=== PATIENT | male | born 1980 | race Caucasian/White ===

== ENCOUNTER 2017-04-15 21:13 | Emergency (ER) | payer MEDICAID ==
[2017-04-15] MEDS ORDERED: HYDROmorphone 1 MG/ML Syringe IM ONE (21:45)
--- NOTE | 2017-04-15 21:47 | EDM.PDOC ---
ED HPI GENERAL MEDICAL PROBLEM - General Chief Complaint: Back Pain or Injury Stated Complaint: BACK PAIN Time Seen by Provider: 04/15/17 21:40 Source of Information: Reports: Patient, Family, RN Notes Reviewed History Limitations: Reports: No Limitations - History of Present Illness INITIAL COMMENTS - FREE TEXT/NARRATIVE: 36-year-old gentleman presents emergency department day complaint of low back pain, he recently moved here from [place] he has been moving his lifting for the last 3 days pain is predominantly on the right side no loss of bowel or bladder no fever he has tried ibuprofen and Flexeril without much relief has used Toradol and Soma in the past without any relief Lower Back Pain Score (Numeric/FACES): 10 - Related Data Allergies Allergy/AdvReac Type Severity Reaction Status Date / Time Sulfa (Sulfonamide Allergy Hives Verified 04/15/17 21:29 Antibiotics) sulfamethoxazole Allergy Hives Verified 04/15/17 21:29 [From Bactrim] trimethoprim [From Bactrim] Allergy Hives Verified 04/15/17 21:29 Past Medical History - Past Health History Medical/Surgical History: Denies Medical/Surgical History Musculoskeletal History: Reports: Back Pain, Chronic - Infectious Disease History Infectious Disease History: Reports: Chicken Pox Social & Family History - Tobacco Use Smoking Status *Q: Current Every Day Smoker Years of Tobacco use: 20 Packs/Tins Daily: 1 - Caffeine Use Caffeine Use: Reports: Coffee, Soda, Tea - Recreational Drug Use Recreational Drug Use: No ED ROS GENERAL - Review of Systems Review Of Systems: See Below Constitutional: Reports: No Symptoms Respiratory: Reports: No Symptoms Cardiovascular: Reports: No Symptoms GI/Abdominal: Reports: No Symptoms : Reports: No Symptoms Musculoskeletal: Reports: Back Pain ED EXAM,LOWER BACK PAIN/INJURY - Physical Exam Exam: See Below Exam Limited By: No Limitations General Appearance: Alert, WD/WN, No Apparent Distress Respiratory/Chest: No Respiratory Distress Back Exam: Normal Inspection, Decreased Range of Motion, Paraspinal Tenderness. No: CVA Tenderness (R), CVA Tenderness (L), Muscle Spasm, Vertebral Tenderness DTR - Lower Extremities: 2+: Knee (R), Knee (L) Course - Vital Signs Last Recorded V/S: Last Vital Signs Temp 98.4 F 04/15/17 21:30 Pulse 82 04/15/17 21:30 Resp 18 04/15/17 21:30 BP 123/80 04/15/17 21:30 Pulse Ox 95 04/15/17 21:30 - Orders/Labs/Meds Meds: Medications Discontinued Medications Generic Name Dose Route Start Last Admin Trade Name Neftaly PRN Reason Stop Dose Admin Hydromorphone HCl 1 mg 04/15/17 21:45 04/15/17 21:53 Dilaudid IM 04/15/17 21:46 1 mg ONETIME ONE Administration Departure - Departure Time of Disposition: 22:32 Disposition: Home, Self-Care 01 Condition: Good Clinical Impression: Back pain Qualifiers: Back pain location: low back pain Chronicity: acute Back pain laterality: right Sciatica presence: without sciatica Qualified Code(s): M54.5 - Low back pain - Discharge Information Referrals: PCP,None [Primary Care Provider] - Forms: ED Department Discharge Additional Instructions: Continue to use ibuprofen as needed for pain control, use Percocet for breakthrough pain, Please followup with your primary care provider in 3-5 days if not better, please call return to the emergency department with worsening of symptoms. - Assessment/Plan Plan: Assessment Acuity = acute Site and laterality = low back pain Etiology = secondary to lifting injury Manifestations = none Location of injury = Home Lab values = none Plan He had good improvement with the Dilaudid provided, prescription written for Percocet 5/325 one tab by mouth 3 times a day when necessary total #10 follow- up primary care 3-5 days if no improvement Patient was in agreement with the plan all questions were answered, they were instructed to return to the emergency department or call for worsening symptoms. This note was dictated using [employer] voice recognition software please call with any questions.
== END 2017-04-15 22:42 | disposition home or self-care (01) ==
LOC: JP.ED 21:13
DX: M54.5 Low back pain (principal); F17.210 Nicotine dependence, cigarettes, uncomplicated; Z88.2 Allergy status to sulfonamides; Z88.1 Allergy status to other antibiotic agents
CPT/HCPCS: 96372; 99283; J1170

== ENCOUNTER 2017-04-27 16:31 | Emergency (ER) | payer MEDICAID | END 2017-04-27 17:55 | disposition left against medical advice (07) | LOC: JP.ED 16:31 | DX: Z53.21 Procedure and treatment not carried out due to patient leaving prior to being seen by health care provider (principal) ==

== ENCOUNTER 2017-04-30 19:16 | Emergency (ER) | payer MEDICAID ==
--- NOTE | 2017-04-30 20:06 | EDM.PDOC ---
ED HPI GENERAL MEDICAL PROBLEM - General Chief Complaint: General Stated Complaint: NEEDS CLEARANCE TO GO BACK TO WORK Time Seen by Provider: 04/30/17 19:21 Source of Information: Reports: Patient History Limitations: Reports: No Limitations - History of Present Illness INITIAL COMMENTS - FREE TEXT/NARRATIVE: Return to Work form; this is a 36 year old male present to ER for a return to work form. He has pulled a muscle during a move to [place] earlier this month , and at work pulled a rib muscle on 04-27-17. He reports all symptoms have resolved and is feeling fine. no other concerns at this time. Duration: Resolved Prior to Arrival Location: Reports: Back Improves with: Reports: Medication (NSAIDS) Context: Reports: Lifting Associated Symptoms: Reports: No Other Symptoms Treatments [employer]: Reports: Acetaminophen, Home Treatments (lidocaine patch from the store.), NSAIDS - Related Data Allergies Allergy/AdvReac Type Severity Reaction Status Date / Time Sulfa (Sulfonamide Allergy Hives Verified 04/27/17 17:09 Antibiotics) sulfamethoxazole Allergy Hives Verified 04/27/17 17:09 [From Bactrim] trimethoprim [From Bactrim] Allergy Hives Verified 04/27/17 17:09 Home Meds: Home Meds Lisinopril 20 mg PO DAILY 04/27/17 [History] Past Medical History - Past Health History Medical/Surgical History: Denies Medical/Surgical History Cardiovascular History: Reports: Hypertension Musculoskeletal History: Reports: Back Pain, Chronic - Infectious Disease History Infectious Disease History: Reports: Chicken Pox Social & Family History - Tobacco Use Smoking Status *Q: Current Every Day Smoker Years of Tobacco use: 15 Packs/Tins Daily: 1 Used Tobacco, but Quit: No Second Hand Smoke Exposure: No - Caffeine Use Caffeine Use: Reports: Coffee - Recreational Drug Use Recreational Drug Use: No ED ROS GENERAL - Review of Systems Review Of Systems: See Below Constitutional: Reports: No Symptoms HEENT: Reports: No Symptoms Respiratory: Reports: No Symptoms Cardiovascular: Reports: No Symptoms Endocrine: Reports: No Symptoms GI/Abdominal: Reports: No Symptoms : Reports: No Symptoms Musculoskeletal: Reports: No Symptoms Skin: Reports: No Symptoms Neurological: Reports: No Symptoms Psychiatric: Reports: No Symptoms Hematologic/Lymphatic: Reports: No Symptoms Immunologic: Reports: No Symptoms ED EXAM, GENERAL - Physical Exam Exam: See Below Exam Limited By: No Limitations General Appearance: Alert, WD/WN, No Apparent Distress Eye Exam: Bilateral Eye: Normal Inspection Ears: Normal External Exam Ear Exam: Bilateral Ear: Auricle Normal, Canal Normal, TM normal Head: Atraumatic, Normocephalic Neck: Normal Inspection, Supple, Non-Tender, Full Range of Motion Respiratory/Chest: No Respiratory Distress, Lungs Clear, Normal Breath Sounds, No Accessory Muscle Use, Chest Non-Tender Cardiovascular: Regular Rate, Rhythm Back Exam: Normal Inspection, Full Range of Motion Neurological: No Motor/Sensory Deficits Psychiatric: Normal Affect, Normal Mood Skin Exam: Warm, Dry, Intact, Normal Color, No Rash Lymphatic: No Adenopathy Course - Vital Signs Last Recorded V/S: Last Vital Signs Temp 36.5 C 04/30/17 19:40 Pulse 93 04/30/17 19:40 Resp 18 04/30/17 19:40 BP 131/81 04/30/17 19:40 Pulse Ox 97 04/30/17 19:40 Departure - Departure Time of Disposition: 20:04 Disposition: Home, Self-Care 01 Condition: Good Clinical Impression: Low back pain, episodic - Discharge Information Referrals: PCP,None [Primary Care Provider] - Care Plan Goals: Back pain; episodic -return to work form completed -may return to work without restriction follow up with Primary Care as needed. - Problem List & Annotations (1) Low back pain, episodic SNOMED Code(s): 022878253 Code(s): M54.5 - LOW BACK PAIN Status: Acute Priority: Low Current Visit: Yes - Assessment/Plan Plan: Back pain; episodic -return to work form completed -may return to work without restriction follow up with Primary Care as needed.
== END 2017-04-30 20:11 | disposition home or self-care (01) ==
LOC: JP.ED 19:16
DX: M54.5 Low back pain (principal); Z88.2 Allergy status to sulfonamides; Z88.8 Allergy status to other drugs, medicaments and biological substances; F17.210 Nicotine dependence, cigarettes, uncomplicated
CPT/HCPCS: 99283